=== PATIENT | male | born 1940 | race Caucasian/White ===

== ENCOUNTER 2016-12-25 12:11 | Day surgery (SDC) | payer MEDICARE, BC ==
[~2016-12-25] VITALS: Ht 170.2 cm; Wt 113.4 kg
--- NOTE | ~2016-12-25 | EGD ---
EGD REPORT [facility] [address] [place] [address] NAME: REESE HERRERA : [birth year] STATUS : REG [facility]#: [id number] AGE: 76 ADM/REG DATE : 12/25/16 MR#: [id number] REPORT SERV DATE: 12/25/16 DICTATED BY: SIMONA KIDD DATE: 12/25/16 REPORT STATUS : Draft TRANSCRIBED BY: [employer] DATE: 12/25/16 [facility] Center Patient Name: Reese Herrera Date of : 1940 Attending MD: SIMONA KIDD MD Procedure Date No Time: 12/25/2016 Procedure: Colonoscopy Indications: Iron deficiency anemia Referring MD: CARMEN HILLIARD MD Medicines: Monitored Anesthesia Care Complications: No immediate complications. Procedure: Pre-Anesthesia Assessment: - ASA Grade Assessment: III - A patient with severe systemic disease. After I obtained informed consent, the scope was passed under direct vision. Throughout the procedure, the patient's blood pressure, pulse, and oxygen saturations were monitored continuously. The CF [id number] was introduced through the anus and advanced to the cecum, identified by appendiceal orifice and ileocecal valve. The colonoscopy was performed without difficulty. The patient tolerated the procedure well. The quality of the bowel preparation was fair. Findings: The digital rectal exam was normal. Pertinent negatives include no palpable rectal lesions. Two medium-sized angioectasias were found in the cecum. Coagulation for bleeding prevention using argon beam at 0.5 liters/minute and 15 delacruz was successful. A sessile polyp was found in the ascending colon. The polyp was 7 mm in size. The polyp was removed with a jumbo cold forceps. Resection and retrieval were complete. A sessile polyp was found in the sigmoid colon. The polyp was 3 mm in size. The polyp was removed with a jumbo cold forceps. Resection and retrieval were complete. Hemorrhoids were found during retroflexion. Impression: - Two colonic angioectasias. Treated with thermal therapy. - One 7 mm polyp in the ascending colon. Resected and retrieved. - One 3 mm polyp in the sigmoid colon. Resected and retrieved. - Hemorrhoids. EGD REPORT [address] [address] NAME: REESE HERRERA : [birth year] STATUS : REG [facility] PAT#: [id number] AGE: 76 ADM/REG DATE : 12/25/16 MR#: [id number] REPORT SERV DATE: 12/25/16 DICTATED BY: SIMONA KIDD DATE: 12/25/16 REPORT STATUS : Draft TRANSCRIBED BY: [employer] DATE: 12/25/16 Recommendation: - Patient has a contact number available for emergencies. The signs and symptoms of potential delayed complications were discussed with the patient. Return to normal activities tomorrow. Written discharge instructions were provided to the patient. - Regular diet. - Continue present medications. - Await pathology results. - Repeat colonoscopy is not recommended for surveillance. - Return to GI clinic PRN. Procedure Code(s): --- Professional --- 74672, 59, Colonoscopy, flexible, proximal to splenic flexure; with control of bleeding (eg, injection, bipolar cautery, unipolar cautery, laser, heater probe, stapler, plasma metal products viewer) 45230, Colonoscopy, flexible, proximal to splenic flexure; with biopsy, single or multiple Diagnosis Code(s): --- Professional --- K55.20, Angiodysplasia of colon without hemorrhage D12.5, Benign neoplasm of sigmoid colon D12.2, Benign neoplasm of ascending colon K64.9, Unspecified hemorrhoids D50.9, Iron deficiency anemia, unspecified CPT copyright 2013 [employer]. All rights reserved. The codes documented in this report are preliminary and upon dietitian research review may be revised to meet current compliance requirements. SIMONA KIDD MD 12/25/2016 3:12 PM This report has been signed electronically. Number of Addenda: 0 Note Initiated On: 12/25/2016 1:44 PM Scope Withdrawal Time 0 hours 14 minutes 57 seconds [address] [address]
--- NOTE | ~2016-12-25 | EGD ---
EGD REPORT [facility] [address] [address] NAME: REESE HERRERA : [birth year] STATUS : REG [facility]#: [id number] AGE: 76 ADM/REG DATE : 12/25/16 MR#: [id number] REPORT SERV DATE: 12/25/16 DICTATED BY: SIMONA KIDD DATE: 12/25/16 REPORT STATUS : Draft TRANSCRIBED BY: [employer] DATE: 12/25/16 Endoscopy Center Patient Name: Reese Herrera Date of : 1940 Attending MD: SIMONA KIDD MD Procedure Date No Time: 12/25/2016 Procedure: Upper GI endoscopy Indications: Iron deficiency anemia, Suspected upper gastrointestinal bleeding in patient with unexplained iron deficiency anemia Referring MD: CARMEN HILLIARD MD Medicines: Monitored Anesthesia Care Complications: No immediate complications. Procedure: Pre-Anesthesia Assessment: - ASA Grade Assessment: III - A patient with severe systemic disease. After obtaining informed consent, the endoscope was passed under direct vision. Throughout the procedure, the patient's blood pressure, pulse, and oxygen saturations were monitored continuously. The GIF [id number] was introduced through the mouth, and advanced to the second part of duodenum. The upper GI endoscopy was accomplished without difficulty. The patient tolerated the procedure well. Findings: The examined esophagus was normal. The entire examined stomach was normal. The cardia and gastric fundus were normal on retroflexion. Four small angioectasias without bleeding were found in the second part of the duodenum. Coagulation for bleeding prevention using argon beam at 0.5 liters/minute and 20 delacruz was successful. Impression: - Normal esophagus. - Normal stomach. - Four non-bleeding angioectasias in the duodenum. Treated with thermal therapy. Recommendation: - Patient has a contact number available for emergencies. The signs and symptoms of potential delayed complications were discussed with the patient. Return to normal activities tomorrow. Written discharge instructions were provided to the patient. - Regular diet. - Continue present medications. EGD REPORT [facility] [address] [place], [place] [address] [address] NAME: REESE HERRERA : [birth year] STATUS : REG [facility]#: [id number] AGE: 76 ADM/REG DATE : 12/25/16 MR#: [id number] REPORT SERV DATE: 12/25/16 DICTATED BY: SIMONA KIDD DATE: 12/25/16 REPORT STATUS : Draft TRANSCRIBED BY: [employer] DATE: 12/25/16 Procedure Code(s): --- Professional --- 14630, Esophagogastroduodenoscopy, flexible, transoral; with control of bleeding, any method Diagnosis Code(s): --- Professional --- K31.819, Angiodysplasia of stomach and duodenum without bleeding D50.9, Iron deficiency anemia, unspecified CPT copyright 2013 [employer] [place] [employer]. All rights reserved. The codes documented in this report are preliminary and upon railroad detective review may be revised to meet current compliance requirements. SIMONA KIDD MD 12/25/2016 2:42 PM This report has been signed electronically. Number of Addenda: 0 Note Initiated On: 12/25/2016 2:21 PM Scope Withdrawal Time 0 hours 0 minutes 0 seconds [address] [place] [address]
[~2016-12-25 12:11] MED LIST: ADVAIR250 INH; ALLEGRA180 PO; ARICEPT5 PO; ASA5GR PO; ASAB PO; BENICAR HCT1 TA2 PO; CIP5 PO; CO Q-10100 MG PO; CRESTOR10 PO; CRESTOR5 MG PO; CYANO1000T PO; DIOVAN HCT320 MG/25 PO; DUONEB INH; EZFE 200200 MG PO; FERROUS SULF325 M1 PO; FISH-EPA1000 MG PO; FLOMAX4 PO; FORTAMET1000 MG PO; FORTAMET500 MG PO; GLUCOPHAGE1000 MG PO; GLUCPH PO; GLUMETZA1000 MG PO; HEMOCYTE324 MG PO; INTEGRA PO; KLOR-CON 1010 MEQ PO; LIPITOR20 PO; LOP25 PO; MAXIMUM D3 PO; MELA3 PO; MOBIC15 MG PO; NAMENDA10 MG PO; NAMENXR28 PO; NEUR300 PO; NORV5 PO; PLAVIX PO; PRESERVISION A1 EAC1 PO; PRISTIQ100 MG PO; PROSCAR5 PO; PROTONIX PO; SPIRIVA INH; VENTOLIN HFA INH; VICODIN 5/325MG PO; VITAMIN D31000 UNIT PO; WELLSR150 PO; XODOL 10-300 T1 EACH PO
== END 2016-12-25 23:59 | disposition home or self-care (01) ==
LOC: DMU 12:11
PROVIDERS: Internal Medicine Gastroenterology
PROC: 0DBN8ZZ Excision of Sigmoid Colon, Via Natural or Artificial Opening Endoscopic (ICD-10-PCS; 2016-12-25)
PROC: 0W3P8ZZ Control Bleeding in Gastrointestinal Tract, Via Natural or Artificial Opening Endoscopic (ICD-10-PCS; principal; 2016-12-25 14:00)
PROC: 0W3P8ZZ Control Bleeding in Gastrointestinal Tract, Via Natural or Artificial Opening Endoscopic (ICD-10-PCS; 2016-12-25 14:00)
PROC: 0DBK8ZZ Excision of Ascending Colon, Via Natural or Artificial Opening Endoscopic (ICD-10-PCS; 2016-12-25 14:00)
DX: D50.9 Iron deficiency anemia, unspecified (principal); K31.819 Angiodysplasia of stomach and duodenum without bleeding; K63.5 Polyp of colon; K64.9 Unspecified hemorrhoids; K21.9 Gastro-esophageal reflux disease without esophagitis; I48.91 Unspecified atrial fibrillation; I10 Essential (primary) hypertension; E11.9 Type 2 diabetes mellitus without complications; E78.00 Pure hypercholesterolemia, unspecified; G47.33 Obstructive sleep apnea (adult) (pediatric); J44.9 Chronic obstructive pulmonary disease, unspecified; F03.90 Unspecified dementia, unspecified severity, without behavioral disturbance, psychotic disturbance, mood disturbance, and anxiety; M19.90 Unspecified osteoarthritis, unspecified site; N20.0 Calculus of kidney; H26.9 Unspecified cataract; Z99.89 Dependence on other enabling machines and devices; Z88.0 Allergy status to penicillin; Z91.013 Allergy to seafood; Z90.79 Acquired absence of other genital organ(s); Z96.651 Presence of right artificial knee joint; Z95.2 Presence of prosthetic heart valve; Z87.891 Personal history of nicotine dependence; Z85.820 Personal history of malignant melanoma of skin; Z79.51 Long term (current) use of inhaled steroids; Z79.84 Long term (current) use of oral hypoglycemic drugs; Z79.899 Other long term (current) drug therapy; Z98.890 Other specified postprocedural states
CPT/HCPCS: 82962; 88305